=== PATIENT | male | born 1995 | race Caucasian/White ===

== ENCOUNTER 2019-07-19 20:39 | Emergency (ER) | payer SELFPAY ==
[~2019-07-19] VITALS: Ht 177.8 cm; Wt 72.6 kg
[~2019-07-19 20:39] MED LIST: MOTRIN100 MG/5 M PO; MOTRIN600 MG PO; NIZORAL 2%15 GM PO; ZANTAC150 MG PO; ZOLOFT50 MG PO
[2019-07-19 21:15] LABS: BASO % 0.5 % (0.0-1.0); EOS # 0.2 10*3/uL (0.0-0.4); EOS % 2.9 % (1.0-4.0); HEMATOCRIT 44.3 % (42.0-52.0); HEMOGLOBIN 14.9 g/dl (14.0-18.0); LYMPH # 2.2 10*3/uL (1.3-4.4); LYMPH % 27.2 % (27.0-41.0); MEAN CELL VOLUME 92.3 fl (80.0-94.0); MEAN CORPUSCULAR HGB CONC 33.6 g/dl (33.0-37.0); MEAN PLATELET VOLUME 9.6 fl (9.6-12.3); MONO # 0.9 10*3/uL (0.1-1.0); NEUT # 4.6 10*3/uL (2.3-7.9); NEUT % 58.1 % (47.0-73.0); PLATELET COUNT AUTOMATED 265 10*3/uL (130-400); RED CELL DISTRI WIDTH 12.1 % (0-14.5); WHITE BLOOD COUNT 7.9 10*3/uL (4.8-10.8)
[2019-07-19 21:32] LABS: ALBUMIN 3.9 gm/dl (3.1-4.5); ALKALINE PHOSPHATASE 55 U/L (45-117); BUN 18 mg/dl (7-24); CHLORIDE 106 mmol/L (98-107); POTASSIUM 3.6 mmol/L (3.5-5.1); SGOT/AST 18 IU/L (3-35); SGPT/ALT 30 U/L (12-78); SODIUM 139 mmol/L (136-145); TOTAL PROTEIN 7.6 gm/dL (6.4-8.2)
[2019-07-19 21:35] LABS: TROPONIN I < 0.015 ng/ml (<0.045)
== END 2019-07-19 23:24 | disposition home or self-care (01) ==
LOC: ED 20:39
PROVIDERS: Nurse Practitioner Family
DX: J06.9 Acute upper respiratory infection, unspecified (principal); F17.200 Nicotine dependence, unspecified, uncomplicated

== ENCOUNTER → 2019-08-26 | Outpatient (CLI) | payer SELFPAY | END | disposition home or self-care (01) | LOC: COVID19 13:09 | DX: B34.9 Viral infection, unspecified (principal); Z20.828 Contact with and (suspected) exposure to other viral communicable diseases ==

== ENCOUNTER 2020-03-03 19:10 | Emergency (ER) | payer BC ==
[~2020-03-03] VITALS: Ht 177.8 cm; Wt 72.6 kg
[2020-03-03 21:32] LABS: BILIRUBIN Negative (Negative); BLOOD Negative (Negative); CLARITY Clear (Clear); COLOR Yellow (Yellow); GLUCOSE Negative (Negative); KETONE Negative (Negative); LEUKO ESTERASE Trace (Negative); NITRITE Negative (Negative); PH 6.5 (4.5-8.0); UROBILINOGEN 0.2 E.U./dl (0.0-1.0)
[2020-03-03] MEDS ORDERED: DOXYCYCLINE100 M3 PO (21:34)
[2020-03-03 21:39] LABS: BASO % 0.3 % (0.0-1.0); EOS # 0.3 10*3/uL (0.0-0.4); EOS % 4.1 % (1.0-4.0); HEMATOCRIT 41.9 % (42.0-52.0); LYMPH # 2.4 10*3/uL (1.3-4.4); LYMPH % 31.6 % (27.0-41.0); MEAN CELL VOLUME 90.5 fl (80.0-94.0); MEAN CORPUSCULAR HGB 29.6 pg (27.0-31.0); MEAN CORPUSCULAR HGB CONC 32.7 g/dl (33.0-37.0); MEAN PLATELET VOLUME 9.4 fl (9.6-12.3); MONO % 12.6 % (3.0-9.0); NEUT # 3.9 10*3/uL (2.3-7.9); NEUT % 51.1 % (47.0-73.0); PLATELET COUNT AUTOMATED 234 10*3/uL (130-400); RED BLOOD COUNT 4.63 10*6/uL (4.50-5.90); RED CELL DISTRI WIDTH 12.3 % (0-14.5); WHITE BLOOD COUNT 7.6 10*3/uL (4.8-10.8)
[2020-03-03 21:45] LABS: BACTERIA TRACE; RBC 0-2 rbc/hpf (0-2)
[2020-03-03 21:55] LABS: ALBUMIN 3.9 gm/dl (3.1-4.5); ALKALINE PHOSPHATASE 52 U/L (45-117); BUN 19 mg/dl (7-24); CHLORIDE 107 mmol/L (98-107); CREATININE 0.96 mg/dL (0.70-1.30); LIPASE 94 U/L (73-393); POTASSIUM 3.7 mmol/L (3.5-5.1); SGOT/AST 14 IU/L (3-35); SGPT/ALT 21 U/L (12-78); SODIUM 140 mmol/L (136-145); TOTAL PROTEIN 7.4 gm/dL (6.4-8.2)
[2020-03-03] MEDS ORDERED: SEPTDS PO (22:14)
== END 2020-03-03 22:22 | disposition home or self-care (01) ==
LOC: ED 19:10
PROVIDERS: Physician Assistant
DX: N39.0 Urinary tract infection, site not specified (principal); Z90.49 Acquired absence of other specified parts of digestive tract

== ENCOUNTER → 2020-09-04 | Outpatient (CLI) | payer BC ==
[~2020-09-04] MED LIST changes: +DOXYCYCLINE100 M3 PO; +SEPTDS PO
== END | disposition home or self-care (01) ==
LOC: COVID19 14:28
PROVIDERS: ATTEND Family Medicine
DX: Z20.822 Contact with and (suspected) exposure to COVID-19 (principal); R43.2 Parageusia

== ENCOUNTER → 2021-05-04 | Outpatient (CLI) | payer BC | END | disposition home or self-care (01) | LOC: COVID19 16:53 | PROVIDERS: ATTEND Internal Medicine | DX: U07.1 COVID-19 (principal) ==

== ENCOUNTER 2022-09-20 19:48 | Emergency (ER) | payer SELFPAY ==
[~2022-09-20] VITALS: Ht 175.2 cm; Wt 72.6 kg
[2022-09-20] MEDS ORDERED: IBU800 M2 PO (20:12)
[2022-09-20] MEDS ORDERED: CLINDAMYCIN HC300 MG PO (21:31)
[2022-09-20] MEDS ORDERED: PROVENTIL HFA6.7 GM PO (21:31)
== END 2022-09-20 21:59 | disposition home or self-care (01) ==
LOC: ED 19:48
DX: S30.811A Abrasion of abdominal wall, initial encounter (principal); Z98.890 Other specified postprocedural states; V29.888A Rider (driver) (passenger) of other motorcycle injured in other specified transport accidents, initial encounter; Y93.55 Activity, bike riding; Y92.413 State road as the place of occurrence of the external cause; Y99.9 Unspecified external cause status

== ENCOUNTER 2023-04-22 17:12 | Emergency (ER) | payer OTHER ==
[~2023-04-22] VITALS: Ht 175.2 cm; Wt 72.6 kg
[~2023-04-22 17:12] MED LIST changes: +CLINDAMYCIN HC300 MG PO; +IBU800 M2 PO; +PROVENTIL HFA6.7 GM PO
[2023-04-22 18:27] LABS: BASO % 0.4 % (0.0-1.0); EOS # 0.2 10*3/uL (0.0-0.4); HEMATOCRIT 44.1 % (42.0-52.0); LYMPH # 1.9 10*3/uL (1.3-4.4); LYMPH % 24.2 % (27.0-41.0); MEAN CELL VOLUME 91.3 fl (80.0-94.0); MEAN CORPUSCULAR HGB 29.8 pg (27.0-31.0); MEAN CORPUSCULAR HGB CONC 32.7 g/dl (33.0-37.0); MEAN PLATELET VOLUME 9.6 fl (9.6-12.3); MONO % 12.5 % (3.0-9.0); NEUT # 4.7 10*3/uL (2.3-7.9); NEUT % 59.8 % (47.0-73.0); PLATELET COUNT AUTOMATED 255 10*3/uL (130-400); RED BLOOD COUNT 4.83 10*6/uL (4.50-5.90); RED CELL DISTRI WIDTH 12.3 % (0-14.5); WHITE BLOOD COUNT 7.8 10*3/uL (4.8-10.8)
[2023-04-22 18:50] LABS: ALKALINE PHOSPHATASE 71 U/L (46-116); BUN 7 mg/dl (9-23); CHLORIDE 106 mmol/L (98-107); LIPASE 32 U/L (12-53); POTASSIUM 3.8 mmol/L (3.4-5.1); SGPT/ALT 27 U/L (5-49); TOTAL PROTEIN 7.6 gm/dL (6.0-8.0)
[2023-04-22 18:55] LABS: BILIRUBIN Negative (Negative); BLOOD Negative (Negative); CLARITY Clear (Clear); COLOR Yellow (Yellow); GLUCOSE Negative (Negative); KETONE Negative (Negative); LEUKO ESTERASE Negative (Negative); NITRITE Negative (Negative); UROBILINOGEN 0.2 E.U./dl (0.0-1.0)
[2023-04-22 19:06] LABS: MUCOUS TRACE; WBC 0-2 wbc/hpf (0-5)
== END 2023-04-22 20:14 | disposition home or self-care (01) ==
LOC: ED 17:12
PROVIDERS: Physician Assistant Medical
DX: K58.9 Irritable bowel syndrome, unspecified (principal); Z90.49 Acquired absence of other specified parts of digestive tract; Z98.890 Other specified postprocedural states